=== PATIENT | female | born 1985 | race Caucasian/White ===

== ENCOUNTER 2021-08-01 19:55 | Emergency (ER) | payer MEDICAID ==
[~2021-08-01] VITALS: Ht 152.4 cm; Wt 95.3 kg
[2021-08-01 21:30] VITALS: BP 143/105
[2021-08-01] MEDS ORDERED: LORA10TA68 PO (22:39)
[2021-08-01] MEDS ORDERED: DIPH50CA4 PO (22:39)
== END 2021-08-01 22:53 | disposition home or self-care (01) ==
LOC: ER 19:58
DX: J30.81 Allergic rhinitis due to animal (cat) (dog) hair and dander (principal); Z79.52 Long term (current) use of systemic steroids; Z79.899 Other long term (current) drug therapy